=== PATIENT | male | born 1985 | race Caucasian/White ===

== ENCOUNTER 2016-09-10 10:57 | Emergency (ER) | payer SELFPAY ==
--- NOTE | 2016-09-10 15:14 | ED NURSING NOTES ---
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 Chief Complaint: SKIN RASH. 11:09/10/16. 11:09/10/16. Alert. No acute distress. SEPSIS SCREEN: Sepsis Screen. Negative (no infection suspected/documented). --11:08 Ede Osorio R.N. 11:09/10/16. BP: 119/71. HR: 65. RR: 14. O2 saturation: 100% on room air. Temp: 98.2 F (oral). Pain level now: 06/22. --11:08 Ede Osorio R.N. Weight: 81.6 kg stated. Height/Length: 72 inches Per Patient. BMI: 24.4. --11:03 Ede Osorio R.N. Medications None. --11:04 Ede Osorio R.N. Medication/allergy information source: the patient. --11:08 Ede Osorio R.N. Allergies Shrimp. Possible --11:04 Ede Osorio R.N. History Arrived by private vehicle. Historian: patient. Unaccompanied. Primary physician (NONE). 11:02 09/10/16. Reported as (Left and right arm, right hip area). This started today. Onset. (0800). He was recently exposed to food (as possible allergen) - (possibly from shrimp). 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 PAST MEDICAL HX: Immunizations not up to date. SOCIAL HX: Current every day light tobacco smoker (cigarette)- less than 1/2 a pack per day. History of occasional drug use: marijuana. No alcohol use. No infectious disease exposure. ABUSE ASSESSMENT: No report of abuse. FALL RISK ASSESSMENT: Fall risk assessment completed. No fall risk identified. NUTRITIONAL RISK ASSESSMENT: The nutritional risk assessment revealed no deficiencies. FUNCTIONAL ASSESSMENT: Functional assessment: no impairments noted. LEARNING NEEDS ASSESSMENT: The learning needs assessment revealed no barriers. SKIN INTEGRITY ASSESSMENT: Skin integrity risk assessment completed. No skin integrity risk identified. --11:08 Ede Osorio R.N. PROBLEMS: Hives. Tinnitus. Cervical Strain. --11:05 Ede Osorio R.N. ADDITIONAL SURGERIES: Lymph node biopsy. Skin grafting. --11:05 Ede Osorio R.N. Assessment 11:09/10/16. --11:08 Ede Osorio R.N. Interventions 11:09/10/16. 11:09/10/16. ID and allergy band on patient. --11:08 Ede Osorio R.N. PHYSICAL ASSESSMENT 11:09/10/16. Ambulatory to room. GENERAL / NEURO / PSYCH: Alert. Appears anxious. Oriented X 4. RESPIRATORY: Respirations not labored. CVS: Pulses within normal limits. SKIN: Skin is warm and dry. Urticaria in the right axilla and left axilla- associated with itching- Right and left hip. --11:06 Ede Osorio R.N. 11:09/10/16. RESPIRATORY: No wheezes, crackles, rhonchi, cough or decreased breath sounds. --11:08 Ede Osorio R.N. NURSING PROGRESS NOTES 11:09/10/16. The plan of care for this patient has been created. Patient gowned. Head of bed elevated. Reassurance given. Call light placed in reach. Side rails up x 2. Bed placed in lowest position. Brakes of bed on. --11:06 Ede Osorio R.N. 11:09/10/16. Patient ready for evaluation- chart flagged and notification provided. --11:06 Ede Osorio R.N. 11:09/10/16. Pulse oximeter and NIBP monitor placed on patient; monitor alarms on. --11:09 Ede Osorio R.N. 11:09/10/16. --11:10 Ede Osorio R.N. 11:09/10/16. O2 saturation: 96% on room air. --11:10 Ede Osorio R.N. 11:10 09/10/16. Patient informed about reason for wait and about plan of care. --11:10 Ede Osorio R.N. 12:10 09/10/2016 Benadryl (DiphenhydrAMINE HCl) IM 50 mg given. Given in the left ventral gluteus. Allergies verified, confirmed 5 rights and sedative warning given to the patient. --12:10 Ede Osorio R.N. 12:09/10/2016 Pepcid (Famotidine) PO 40 mg given. Allergies verified and confirmed 5 rights. --12:10 Ede Osorio R.N. 12:09/10/2016 Dexamethasone IM 10 mg given. Given in the left ventral gluteus. Allergies verified and confirmed 5 rights. --12:10 Ede Osorio R.N. 12:11 09/10/16. Patient informed about reason for wait and about plan of care. --12:11 Ede Osorio R.N. DISPOSITION / DISCHARGE 12:20 09/10/16. Condition at departure: improved. The goals identified in the patient's plan of care were met. No learning barriers present. Discharge instructions provided and reviewed with the patient. Reviewed warnings. Reviewed medication(s). Treatments reviewed. Reviewed referral to an manager car. Patient verbalized understanding. Written instructions provided in Yemeni. The patient was discharged by the physician. He was discharged home and accompanied by payroll and benefits specialist. He left the Emergency Department ambulatory and via private vehicle. Professional Driver driving. FALL RISK ASSESSMENT: Fall risk assessment completed. No fall risk identified. --12:20 Ede Osorio R.N. 12:19 09/10/16. BP: 113/69. HR: 64. RR: 14. O2 saturation: 99%. Temp: 97.9 F (oral). --12:20 Ede Osorio R.N. 12:20 09/10/16. Departure time: 12:20. --12:20 Ede Osorio R.N. Locked/Released at 09/10/2016 12:29 by Ede Osorio R.N.
--- NOTE | 2016-09-10 15:14 | ED ORDER SUMMARY ---
..... 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 per protocol) (11:09 JBoardley R.N.) Vitals (11:09/10/2016 JBoardley R.N. per protocol) (11:09 JBoardley R.N.) MEDICATION ORDERS: Benadryl IM 50 mg (NOW) (12:09/10/2016 Manuela MATTHEWS) (Ack 12:03 JBoardley R.N.) (12:10 JBoardley R.N.) Pepcid PO 40 mg (NOW) (12:09/10/2016 Manuela MATTHEWS) (Ack 12:03 JBoardley R.N.) (12:10 JBoardley R.N.) Dexamethasone IM 10 mg (NOW) (12:03 09/10/2016 Manuela MATTHEWS) (Ack 12:03 JBoardley R.N.) (12:10 JBoardley R.N.) IV FLUIDS: ORDER SHEET NOTES: [Electronically signed by Ede Osorio R.N. (12:29 09/10/2016)] [Electronically signed by Louie Burton MD (15:37 09/10/2016)] [Electronically locked/signed by Ede Osorio R.N. (12:29 09/10/2016)]
--- NOTE | 2016-09-10 15:14 | ED ORDER SUMMARY ---
..... 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 per protocol) (11:09 JBoardley R.N.) Vitals (11:09/10/2016 JBoardley R.N. per protocol) (11:09 JBoardley R.N.) MEDICATION ORDERS: Benadryl IM 50 mg (NOW) (12:09/10/2016 Manuela MATTHEWS) (Ack 12:03 JBoardley R.N.) (12:10 JBoardley R.N.) Pepcid PO 40 mg (NOW) (12:09/10/2016 Manuela MATTHEWS) (Ack 12:03 JBoardley R.N.) (12:10 JBoardley R.N.) Dexamethasone IM 10 mg (NOW) (12:03 09/10/2016 Manuela MATTHEWS) (Ack 12:03 JBoardley R.N.) (12:10 JBoardley R.N.) IV FLUIDS: ORDER SHEET NOTES: [Electronically signed by Ede Osorio R.N. (12:29 09/10/2016)] [Electronically signed by Louie Burton MD (15:37 09/10/2016)] [Electronically locked/signed by Ede Osorio R.N. (12:29 09/10/2016)]
--- NOTE | 2016-09-10 15:14 | ED NURSING NOTES ---
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 Chief Complaint: SKIN RASH. 11:09/10/16. 11:09/10/16. Alert. No acute distress. SEPSIS SCREEN: Sepsis Screen. Negative (no infection suspected/documented). --11:08 Ede Osorio R.N. 11:09/10/16. BP: 119/71. HR: 65. RR: 14. O2 saturation: 100% on room air. Temp: 98.2 F (oral). Pain level now: 06/22. --11:08 Ede Osorio R.N. Weight: 81.6 kg stated. Height/Length: 72 inches Per Patient. BMI: 24.4. --11:03 Ede Osorio R.N. Medications None. --11:04 Ede Osorio R.N. Medication/allergy information source: the patient. --11:08 Ede Osorio R.N. Allergies Shrimp. Possible --11:04 Ede Osorio R.N. History Arrived by private vehicle. Historian: patient. Unaccompanied. Primary physician (NONE). 11:02 09/10/16. Reported as (Left and right arm, right hip area). This started today. Onset. (0800). He was recently exposed to food (as possible allergen) - (possibly from shrimp). 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 PAST MEDICAL HX: Immunizations not up to date. SOCIAL HX: Current every day light tobacco smoker (cigarette)- less than 1/2 a pack per day. History of occasional drug use: marijuana. No alcohol use. No infectious disease exposure. ABUSE ASSESSMENT: No report of abuse. FALL RISK ASSESSMENT: Fall risk assessment completed. No fall risk identified. NUTRITIONAL RISK ASSESSMENT: The nutritional risk assessment revealed no deficiencies. FUNCTIONAL ASSESSMENT: Functional assessment: no impairments noted. LEARNING NEEDS ASSESSMENT: The learning needs assessment revealed no barriers. SKIN INTEGRITY ASSESSMENT: Skin integrity risk assessment completed. No skin integrity risk identified. --11:08 Ede Osorio R.N. PROBLEMS: Hives. Tinnitus. Cervical Strain. --11:05 Ede Osorio R.N. ADDITIONAL SURGERIES: Lymph node biopsy. Skin grafting. --11:05 Ede Osorio R.N. Assessment 11:09/10/16. --11:08 Ede Osorio R.N. Interventions 11:09/10/16. 11:09/10/16. ID and allergy band on patient. --11:08 Ede Osorio R.N. PHYSICAL ASSESSMENT 11:09/10/16. Ambulatory to room. GENERAL / NEURO / PSYCH: Alert. Appears anxious. Oriented X 4. RESPIRATORY: Respirations not labored. CVS: Pulses within normal limits. SKIN: Skin is warm and dry. Urticaria in the right axilla and left axilla- associated with itching- Right and left hip. --11:06 Ede Osorio R.N. 11:09/10/16. RESPIRATORY: No wheezes, crackles, rhonchi, cough or decreased breath sounds. --11:08 Ede Osorio R.N. NURSING PROGRESS NOTES 11:09/10/16. The plan of care for this patient has been created. Patient gowned. Head of bed elevated. Reassurance given. Call light placed in reach. Side rails up x 2. Bed placed in lowest position. Brakes of bed on. --11:06 Ede Osorio R.N. 11:09/10/16. Patient ready for evaluation- chart flagged and notification provided. --11:06 Ede Osorio R.N. 11:09/10/16. Pulse oximeter and NIBP monitor placed on patient; monitor alarms on. --11:09 Ede Osorio R.N. 11:09/10/16. --11:10 Ede Osorio R.N. 11:09/10/16. O2 saturation: 96% on room air. --11:10 Ede Osorio R.N. 11:10 09/10/16. Patient informed about reason for wait and about plan of care. --11:10 Ede Osorio R.N. 12:10 09/10/2016 Benadryl (DiphenhydrAMINE HCl) IM 50 mg given. Given in the left ventral gluteus. Allergies verified, confirmed 5 rights and sedative warning given to the patient. --12:10 Ede Osorio R.N. 12:09/10/2016 Pepcid (Famotidine) PO 40 mg given. Allergies verified and confirmed 5 rights. --12:10 Ede Osorio R.N. 12:09/10/2016 Dexamethasone IM 10 mg given. Given in the left ventral gluteus. Allergies verified and confirmed 5 rights. --12:10 Ede Osorio R.N. 12:11 09/10/16. Patient informed about reason for wait and about plan of care. --12:11 Ede Osorio R.N. DISPOSITION / DISCHARGE 12:20 09/10/16. Condition at departure: improved. The goals identified in the patient's plan of care were met. No learning barriers present. Discharge instructions provided and reviewed with the patient. Reviewed warnings. Reviewed medication(s). Treatments reviewed. Reviewed referral to an clinical allergist. Patient verbalized understanding. Written instructions provided in [place]anian. The patient was discharged by the physician. He was discharged home and accompanied by tankage grinder operator. He left the Emergency Department ambulatory and via private vehicle. Machine Setter Supervisor driving. FALL RISK ASSESSMENT: Fall risk assessment completed. No fall risk identified. --12:20 Ede Osorio R.N. 12:19 09/10/16. BP: 113/69. HR: 64. RR: 14. O2 saturation: 99%. Temp: 97.9 F (oral). --12:20 Ede Osorio R.N. 12:20 09/10/16. Departure time: 12:20. --12:20 Ede Osorio R.N. Locked/Released at 09/10/2016 12:29 by Ede Osorio R.N.
--- NOTE | 2016-09-10 15:14 | ED CLINICAL REPORT ---
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 Arrived- By private vehicle. Historian- patient. HISTORY OF PRESENT ILLNESS Chief Complaint: ALLERGIC REACTION and "HIVES". The patient has had a itchy, painful skin rash consisting of "redness" and "hives" with generalized distribution. He has had itching and swelling but not had trouble swallowing. No difficulty breathing, dizziness or fainting episodes. This started last night and is still present. It was abrupt in onset and has been constant and waxing/waning. A possible cause has been identified (shrimp). Similar symptoms previously: Once. REVIEW OF SYSTEMS No chills, fever, sweats, calf pain or chest pain. No cough, difficulty breathing, pedal edema, palpitations or abdominal pain. No constipation, diarrhea, nausea, vomiting or urinary problems. All systems otherwise negative, except as recorded above. SOCIAL HISTORY Current every day light tobacco smoker (cigarette)- less than 1/2 a pack per day. History of occasional drug use: marijuana. No alcohol use. FAMILY HISTORY No significant family medical history. ADDITIONAL NOTES The nursing notes have been reviewed. PHYSICAL EXAM Vital Signs: 09/10/2016 11:01 BP: 119/71. HR: 65. RR: 14. O2 saturation: 100%. Temp: 98.2 F. Pain level now: 2/10. Have been reviewed. Appearance: Alert. No acute distress. Head: No facial angioedema. Eyes: Pupils equal, round and reactive to light. ENT: Ears normal. Nose normal. Pharynx normal. Neck: Neck supple. CVS: Normal heart rate and rhythm. Heart sounds normal. Respiratory: No respiratory distress. Breath sounds normal. Abdomen: Nontender. No organomegaly. Extremities: Normal external inspection. No calf tenderness. Skin: Moderate generalized urticaria. PROGRESS AND PROCEDURES Course of Care: Patient is stable. Patient/family counseled. Old medical records reviewed. Disposition: Discharged. Condition: stable. CLINICAL IMPRESSION Acute hives secondary to unknown cause. INSTRUCTIONS No driving or operating machinery while taking medication. Sedative medication was given during your visit. Warnings: Further evaluation is necessary. GENERAL WARNINGS: Return or contact your physician immediately if your condition worsens or changes unexpectedly, if not improving as expected, or if other problems arise. Prescription Medications: Prednisone 20 mg: take 3 orally every day for 5 days. Dispense fifteen (15). No refills. Pepcid 20 mg tablets: Take 1 orally every 12 hours. Dispense thirty (30). No refills. Substitution is permissible. OTC Medications: Benadryl (available over the counter): take according to label instructions. Follow-up: Follow up with an structural iron erector- as recommended by your primary care physician. Understanding of the discharge instructions verbalized by patient. Follow-up with: [facility], , , [address], [facility], [id number] Follow up in five days. Call for an appointment. (Electronically signed by Louie Burton MD 09/10/2016 15:37)
--- NOTE | 2016-09-10 15:14 | ED CLINICAL REPORT ---
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 Arrived- By private vehicle. Historian- patient. HISTORY OF PRESENT ILLNESS Chief Complaint: ALLERGIC REACTION and "HIVES". The patient has had a itchy, painful skin rash consisting of "redness" and "hives" with generalized distribution. He has had itching and swelling but not had trouble swallowing. No difficulty breathing, dizziness or fainting episodes. This started last night and is still present. It was abrupt in onset and has been constant and waxing/waning. A possible cause has been identified (shrimp). Similar symptoms previously: Once. REVIEW OF SYSTEMS No chills, fever, sweats, calf pain or chest pain. No cough, difficulty breathing, pedal edema, palpitations or abdominal pain. No constipation, diarrhea, nausea, vomiting or urinary problems. All systems otherwise negative, except as recorded above. SOCIAL HISTORY Current every day light tobacco smoker (cigarette)- less than 1/2 a pack per day. History of occasional drug use: marijuana. No alcohol use. FAMILY HISTORY No significant family medical history. ADDITIONAL NOTES The nursing notes have been reviewed. PHYSICAL EXAM Vital Signs: 09/10/2016 11:01 BP: 119/71. HR: 65. RR: 14. O2 saturation: 100%. Temp: 98.2 F. Pain level now: 2/10. Have been reviewed. Appearance: Alert. No acute distress. Head: No facial angioedema. Eyes: Pupils equal, round and reactive to light. ENT: Ears normal. Nose normal. Pharynx normal. Neck: Neck supple. CVS: Normal heart rate and rhythm. Heart sounds normal. Respiratory: No respiratory distress. Breath sounds normal. Abdomen: Nontender. No organomegaly. Extremities: Normal external inspection. No calf tenderness. Skin: Moderate generalized urticaria. PROGRESS AND PROCEDURES Course of Care: Patient is stable. Patient/family counseled. Old medical records reviewed. Disposition: Discharged. Condition: stable. CLINICAL IMPRESSION Acute hives secondary to unknown cause. INSTRUCTIONS No driving or operating machinery while taking medication. Sedative medication was given during your visit. Warnings: Further evaluation is necessary. GENERAL WARNINGS: Return or contact your physician immediately if your condition worsens or changes unexpectedly, if not improving as expected, or if other problems arise. Prescription Medications: Prednisone 20 mg: take 3 orally every day for 5 days. Dispense fifteen (15). No refills. Pepcid 20 mg tablets: Take 1 orally every 12 hours. Dispense thirty (30). No refills. Substitution is permissible. OTC Medications: Benadryl (available over the counter): take according to label instructions. Follow-up: Follow up with an cyber security- as recommended by your primary care physician. Understanding of the discharge instructions verbalized by patient. Follow-up with: [facility], , , [address], [facility], [id number] Follow up in five days. Call for an appointment. (Electronically signed by Louie Burton MD 09/10/2016 15:37)
--- NOTE | 2016-09-10 15:38 | ED MAR SUMMARY ---
..... 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 Medication Administered: BENADRYL [IM] (DIPHENHYDRAMINE HCL), Dose: 50 mg IM. Medication Ordered: Benadryl IM 50 mg (NOW). Given 12:09/10/2016 Ede Osorio R.N. Medication Administered: PEPCID [PO] (FAMOTIDINE), Dose: 40 mg PO. Medication Ordered: Pepcid PO 40 mg (NOW). Given 12:09/10/2016 Ede Osorio R.N. Medication Administered: DEXAMETHASONE [IM], Dose: 10 mg IM. Medication Ordered: Dexamethasone IM 10 mg (NOW).
--- NOTE | 2016-09-10 15:38 | ED DISCHARGE INSTRUCTIONS ---
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 [address] 31y, M Registration Date/Time: 09/10/2016 Acute hives secondary to unknown cause. INSTRUCTIONS No driving or operating machinery while taking medication. Sedative medication was given during your visit. Warnings: Further evaluation is necessary. GENERAL WARNINGS: Return or contact your physician immediately if your condition worsens or changes unexpectedly, if not improving as expected, or if other problems arise. Prescription Medications: Prednisone 20 mg: take 3 orally every day for 5 days. Dispense fifteen (15). No refills. Pepcid 20 mg tablets: Take 1 orally every 12 hours. Dispense thirty (30). No refills. Substitution is permissible. OTC Medications: Benadryl (available over the counter): take according to label instructions. Follow-up: Follow up with an gleason operator- as recommended by your primary care physician. Understanding of the discharge instructions verbalized by patient. Follow-up with: [facility], , , [address], , [place], [address] Follow up in five days. Call for an appointment. ADDITIONAL INFORMATION Hives Hives is an itchy red rash that can appear suddenly and move about your body. It goes away in one place and comes back in another. This is usually caused by something that you are allergic to such as: EATING: fruit, shellfish, chocolate, nuts, tomatoes or medicine BREATHING: pollens, animal hair/fur or mold spores Exposure to cold air, sun rays or exercise can sometimes cause an attack. Many times we cannot find a cause. Medicines can be used to reduce itching and swelling. The rash will usually fade over several days, but can sometimes last up to two weeks. Home Care: 1) Do not wear tight clothing and do not take hot baths/showers since heat can make the itching worse. 2) An ice pack (ice cubes in a plastic bag, wrapped in a towel) will reduce local areas of redness and itching. Lanacaine cream or Solarcaine spray (or other product containing "benzocaine") will reduce itching. 3) Oral Benadryl (diphenhydramine) is an antihistamine available at drug and grocery stores. Unless a prescription antihistamine was given, Benadryl may be used to reduce itching if large areas of the skin are involved. Use lower doses during the daytime and higher doses at bedtime since the drug may make you sleepy. [NOTE: Do not use Benadryl if you have glaucoma or if you are a man with trouble urinating due to an enlarged prostate.] Claritin (loratadine) is an antihistamine that causes less drowsiness and is a good alternative for daytime use. 4) If you know what you are sensitive to, avoid this substance. Future reactions could be worse than this one. Follow Up with your doctor as directed by our staff, if symptoms do not begin to improve in two days. If you have had a severe reaction, or have had several episodes of hives, then ask your doctor about allergy testing to find out what you are allergic to. Get Prompt Medical Attention if any of the following occur: -- Trouble breathing or swallowing -- New or increased swelling in the face, lips, tongue or throat -- Dizziness, weakness or fainting Food Allergy Some persons are sensitive to certain foods. Avoiding these foods is the best treatment. Symptoms of food allergy may begin within minutes up to two hours after eating. Symptoms cause nausea, vomiting, diarrhea or stomach cramps, itchy rash (hives), swelling of the eyes, lips, face or tongue, wheezing, difficulty breathing or swallowing, throat tightness, dizziness or fainting. This kind of allergy can be life-threatening, but in mild-moderate cases symptoms resolve within 6 to 24 hours. Persons with certain health conditions, such as asthma and eczema, are prone to food allergies. Foods that commonly cause an allergic reaction include milk, eggs, peanuts, tree nuts, fish or shellfish, and wheat. But be aware that any food can cause a reaction. Treatment for a severe allergic reaction (anaphylaxis) is epinephrine. A person with a severe food allergy should carry this medication for self-injection. This is available by prescription. Brands include EpiPen, Adrenaclick, and Twinject. Home Care: If symptoms were moderate to severe, rest at home for the next 24 hours. Avoid tobacco and alcohol consumption. These may worsensymptoms. If you know what foods caused your reaction today, avoid them in the future. The next reaction is likely to be worse. Let your family members, friends and personal physician know about your food allergy. Learn how to read food labels so you can check for the substance that you reacted to. If the product does not have a label, it is best to avoid it. When in restaurants, ask about ingredients. If your reaction was severe, obtain a medical alert bracelet or necklace noting your allergy. If epinephrine is prescribed, carry it at all times. Learn how to use the device. If you begin to feel the symptoms of another reaction, use the epinephrine to inject yourself right away, and call 911. Dont wait until symptoms become severe. Oral Benadryl (diphenhydramine) is an antihistamine available at drug and grocery stores. Unless a prescription antihistamine was given, Benadryl may be used to reduce itching if large areas of the skin are involved. Use lower doses during the daytime and higher doses at bedtime since the drug may make you sleepy. [NOTE: Do not use Benadryl if you have glaucoma or if you are a man with trouble urinating due to an enlarged prostate.] Follow Up with your doctor or as advised if you are not improving over the next 2 to 3 days. If you do not know what caused this reaction, skin tests and blood tests, or an elimination diet may be helpful. You may locate an acute care clinical nurse specialist in your area by contacting: [employer] [email or web address] [employer] [email or web address] Get Prompt Medical Attention if any of the following occur: Worsening of your symptoms New or worse swelling in the face, eyelids, lips, mouth, throat or tongue Trouble swallowing or breathing Dizziness, weakness or fainting Fever of 100.4F (38C) or higher, or as directed by your healthcare provider Severe constant lower right abdominal pain Persistent vomiting (unable to keep liquids down) or constant diarrhea Blood or mucus in the stool Prednisone Oral tablet What is this medicine? PREDNISONE (PRED ni sone) is a corticosteroid. It is commonly used to treat inflammation of the skin, joints, lungs, and other organs. Common conditions treated include asthma, allergies, and arthritis. It is also used for other conditions, such as blood disorders and diseases of the adrenal glands. How should I use this medicine? Take this medicine by mouth with a glass of water. Follow the directions on the prescription label. Take this medicine with food. If you are taking this medicine once a day, take it in the morning. Do not take more medicine than you are told to take. Do not suddenly stop taking your medicine because you may develop a severe reaction. Your doctor will tell you how much medicine to take. If your doctor wants you to stop the medicine, the dose may be slowly lowered over time to avoid any side effects. Talk to your stay cutter regarding the use of this medicine in children. Special care may be needed. What side effects may I notice from receiving this medicine? Side effects that you should report to your doctor or health medicare biller as soon as possible: allergic reactions like skin rash, itching or hives, swelling of the face, lips, or tongue changes in emotions or moods changes in vision depressed mood eye pain fever or chills, cough, sore throat, pain or difficulty passing urine increased thirst swelling of ankles, feet Side effects that usually do not require medical attention (report to your doctor or health medicare biller if they continue or are bothersome): confusion, excitement, restlessness headache nausea, vomiting skin problems, acne, thin and shiny skin trouble sleeping weight gain What may interact with this medicine? Do not take this medicine with any of the following medications: metyrapone mifepristone This medicine may also interact with the following medications: aminoglutethimide amphotericin B aspirin and aspirin-like medicines barbiturates certain medicines for diabetes, like glipizide or glyburide cholestyramine cholinesterase inhibitors cyclosporine digoxin diuretics ephedrine female hormones, like estrogens and control pills isoniazid ketoconazole NSAIDS, medicines for pain and inflammation, like ibuprofen or naproxen phenytoin rifampin toxoids vaccines warfarin What if I miss a dose? If you miss a dose, take it as soon as you can. If it is almost time for your next dose, talk to your doctor or health medicare biller. You may need to miss a dose or take an extra dose. Do not take double or extra doses without advice. Where should I keep my medicine? Keep out of the reach of children. Store at room temperature between 15 and 30 degrees C (59 and 86 degrees F). Protect from light. Keep container tightly closed. Throw away any unused medicine after the expiration date. What should I tell my health care provider before I take this medicine? They need to know if you have any of these conditions: Mont[place]ier's syndrome diabetes glaucoma heart disease high blood pressure infection (especially a virus infection such as chickenpox, cold sores, or herpes) kidney disease liver disease mental illness myasthenia gravis osteoporosis seizures stomach or intestine problems thyroid disease an unusual or allergic reaction to lactose, prednisone, other medicines, foods, dyes, or preservatives or trying to get breast-feeding What should I watch for while using this medicine? Visit your doctor or health medicare biller for regular checks on your progress. If you are taking this medicine over a prolonged period, carry an identification card with your name and address, the type and dose of your medicine, and your doctor's name and address. This medicine may increase your risk of getting an infection. Tell your doctor or health medicare biller if you are around anyone with measles or chickenpox, or if you develop sores or blisters that do not heal properly. If you are going to have surgery, tell your doctor or health medicare biller that you have taken this medicine within the last twelve months. Ask your doctor or health medicare biller about your diet. You may need to lower the amount of salt you eat. This medicine may affect blood sugar levels. If you have diabetes, check with your doctor or health medicare biller before you change your diet or the dose of your diabetic medicine. Famotidine Oral tablet What is this medicine? FAMOTIDINE (fa SHARON chatman) is a type of antihistamine that blocks the release of stomach acid. It is used to treat stomach or intestinal ulcers. It can also relieve heartburn from acid reflux. How should I use this medicine? Take this medicine by mouth with a glass of water. Follow the directions on the prescription label. If you only take this medicine once a day, take it at bedtime. Take your doses at regular intervals. Do not take your medicine more often than directed. Talk to your stay cutter regarding the use of this medicine in children. Special care may be needed. What side effects may I notice from receiving this medicine? Side effects that you should report to your doctor or health medicare biller as soon as possible: agitation, nervousness confusion hallucinations skin rash, itching Side effects that usually do not require medical attention (report to your doctor or health medicare biller if they continue or are bothersome): constipation diarrhea dizziness headache What may interact with this medicine? delavirdine itraconazole ketoconazole What if I miss a dose? If you miss a dose, take it as soon as you can. If it is almost time for your next dose, take only that dose. Do not take double or extra doses. Where should I keep my medicine? Keep out of the reach of children. Store at room temperature between 15 and 30 degrees C (59 and 86 degrees F). Do not freeze. Throw away any unused medicine after the expiration date. What should I tell my health care provider before I take this medicine? They need to know if you have any of these conditions: kidney or liver disease trouble swallowing an unusual or allergic reaction to famotidine, other medicines, foods, dyes, or preservatives or trying to get breast-feeding What should I watch for while using this medicine? Tell your doctor or health medicare biller if your condition does not start to get better or if it gets worse. Finish the full course of tablets prescribed, even if you feel better. Do not take with aspirin, ibuprofen or other antiinflammatory medicines. These can make your condition worse. Do not smoke cigarettes or drink alcohol. These cause irritation in your stomach and can increase the time it will take for ulcers to heal. If you get black, tarry stools or vomit up what looks like coffee grounds, call your doctor or health medicare biller at once. You may have a bleeding ulcer. Diphenhydramine Tannate Chewable tablet What is this medicine? DIPHENHYDRAMINE (dye avi barnes) is an antihistamine. It is used to treat the symptoms of an allergic reaction. How should I use this medicine? Take this medicine by mouth. Chew it completely before swallowing. Follow the directions on the prescription label. Take your doses at regular intervals. Do not take your medicine more often than directed. Talk to your stay cutter regarding the use of this medicine in children. While this drug may be prescribed for children as young as 6 years old for selected conditions, precautions do apply. Patients over 65 years old may have a stronger reaction and need a smaller dose. What side effects may I notice from receiving this medicine? Side effects that you should report to your doctor or health medicare biller as soon as possible: allergic reactions like skin rash, itching or hives, swelling of the face, lips, or tongue changes in vision confused, agitated, nervous irregular or fast heartbeat tremor trouble passing urine unusual bleeding or bruising unusually weak or tired Side effects that usually do not require medical attention (report to your doctor or health medicare biller if they continue or are bothersome): constipation, diarrhea drowsy headache loss of appetite stomach upset, vomiting thick mucous What may interact with this medicine? Do not take this medicine with any of the following medications: MAOIs like Carbex, Eldepryl, Marplan, Nardil, and Parnate This medicine may also interact with the following medications: alcohol barbiturates, like phenobarbital medicines for bladder spasm like oxybutynin, tolterodine medicines for blood pressure medicines for depression, anxiety, or psychotic disturbances medicines for movement abnormalities or Parkinson's disease medicines for sleep other medicines for cold, cough or allergy some medicines for the stomach like chlordiazepoxide, dicyclomine What if I miss a dose? If you miss a dose, take it as soon as you can. If it is almost time for your next dose, take only that dose. Do not take double or extra doses. Where should I keep my medicine? Keep out of the reach of children. Store at room temperature between 15 and 30 degrees C (59 and 86 degrees F). Keep container closed tightly. Throw away any unused medicine after the expiration date. What should I tell my health care provider before I take this medicine? They need to know if you have any of these conditions: glaucoma high blood pressure heart disease liver disease lung or breathing disease, like asthma pain or difficulty passing urine phenylketonuria prostate trouble ulcers or other stomach problems an unusual or allergic reaction to diphenhydramine, sulfites, other medicines foods, dyes, or preservatives or trying to get breast-feeding What should I watch for while using this medicine? Visit your doctor or health medicare biller for regular check ups. Tell your doctor or healthcare professional if your symptoms do not start to get better or if they get worse. Your mouth may get dry. Chewing sugarless gum or sucking hard candy, and drinking plenty of water may help. Contact your doctor if the problem does not go away or is severe. This medicine may cause dry eyes and blurred vision. If you wear contact lenses you may feel some discomfort. Lubricating drops may help. See your eye doctor if the problem does not go away or is severe. You may get drowsy or dizzy. Do not drive, use machinery, or do anything that needs mental alertness until you know how this medicine affects you. Do not stand or sit up quickly, especially if you are an older patient. This reduces the risk of dizzy or fainting spells. Alcohol may interfere with the effect of this medicine. Avoid alcoholic drinks. You have been given the following additional information: Hives Food Allergy Prednisone Oral tablet Famotidine Oral tablet Diphenhydramine Tannate Chewable tablet No driving or operating machinery while taking medication. Sedative medication was given during your visit. (Electronically signed by Louie Burton MD 09/10/2016 15:37)
--- NOTE | 2016-09-10 15:38 | ED MED RECONCILIATION SUMMARY ---
Patient: GERMAINE KASPER Medication Reconciliation Report [facility] VisitID: [id number] [address] [place] [address] 31y, M Registration Date/Time: 09/10/2016 Weight: 81.6 kg Height/Length: 72 in. BMI: 24.4 ALLERGIES: Shrimp The patient's Home Medications are listed below: NONE. The source(s) of the original Home Medication information: patient The following Medications were given to the patient in the Emergency Department: Benadryl [IM] IM 50 mg, administered: 09/10/2016 12:10:00 PM Pepcid [PO] PO 40 mg, administered: 09/10/2016 12:10:00 PM Dexamethasone [IM] IM 10 mg, administered: 09/10/2016 12:10:00 PM The following Medications were prescribed to the patient: Benadryl (available over the counter): take according to label instructions. -- Louie Burton MD Prednisone 20 mg: take 3 orally every day for 5 days. Dispense fifteen (15). No refills. -- Louie Burton MD Pepcid 20 mg tablets: Take 1 orally every 12 hours. Dispense thirty (30). No refills. Substitution is permissible. -- Louie Burton MD
--- NOTE | 2016-09-10 15:38 | ED DISCHARGE INSTRUCTIONS ---
Patient: GERMAINE KASPER General Instructions [facility] VisitID: [id number] [address] [place] [address] 31y, M Registration Date/Time: 09/10/2016 Acute hives secondary to unknown cause. INSTRUCTIONS No driving or operating machinery while taking medication. Sedative medication was given during your visit. Warnings: Further evaluation is necessary. GENERAL WARNINGS: Return or contact your physician immediately if your condition worsens or changes unexpectedly, if not improving as expected, or if other problems arise. Prescription Medications: Prednisone 20 mg: take 3 orally every day for 5 days. Dispense fifteen (15). No refills. Pepcid 20 mg tablets: Take 1 orally every 12 hours. Dispense thirty (30). No refills. Substitution is permissible. OTC Medications: Benadryl (available over the counter): take according to label instructions. Follow-up: Follow up with an medical affairs manager- as recommended by your primary care physician. Understanding of the discharge instructions verbalized by patient. Follow-up with: [facility], , , [address], , [place], [address] Follow up in five days. Call for an appointment. ADDITIONAL INFORMATION Hives Hives is an itchy red rash that can appear suddenly and move about your body. It goes away in one place and comes back in another. This is usually caused by something that you are allergic to such as: EATING: fruit, shellfish, chocolate, nuts, tomatoes or medicine BREATHING: pollens, animal hair/fur or mold spores Exposure to cold air, sun rays or exercise can sometimes cause an attack. Many times we cannot find a cause. Medicines can be used to reduce itching and swelling. The rash will usually fade over several days, but can sometimes last up to two weeks. Home Care: 1) Do not wear tight clothing and do not take hot baths/showers since heat can make the itching worse. 2) An ice pack (ice cubes in a plastic bag, wrapped in a towel) will reduce local areas of redness and itching. Lanacaine cream or Solarcaine spray (or other product containing "benzocaine") will reduce itching. 3) Oral Benadryl (diphenhydramine) is an antihistamine available at drug and grocery stores. Unless a prescription antihistamine was given, Benadryl may be used to reduce itching if large areas of the skin are involved. Use lower doses during the daytime and higher doses at bedtime since the drug may make you sleepy. [NOTE: Do not use Benadryl if you have glaucoma or if you are a man with trouble urinating due to an enlarged prostate.] Claritin (loratadine) is an antihistamine that causes less drowsiness and is a good alternative for daytime use. 4) If you know what you are sensitive to, avoid this substance. Future reactions could be worse than this one. Follow Up with your doctor as directed by our staff, if symptoms do not begin to improve in two days. If you have had a severe reaction, or have had several episodes of hives, then ask your doctor about allergy testing to find out what you are allergic to. Get Prompt Medical Attention if any of the following occur: -- Trouble breathing or swallowing -- New or increased swelling in the face, lips, tongue or throat -- Dizziness, weakness or fainting Food Allergy Some persons are sensitive to certain foods. Avoiding these foods is the best treatment. Symptoms of food allergy may begin within minutes up to two hours after eating. Symptoms cause nausea, vomiting, diarrhea or stomach cramps, itchy rash (hives), swelling of the eyes, lips, face or tongue, wheezing, difficulty breathing or swallowing, throat tightness, dizziness or fainting. This kind of allergy can be life-threatening, but in mild-moderate cases symptoms resolve within 6 to 24 hours. Persons with certain health conditions, such as asthma and eczema, are prone to food allergies. Foods that commonly cause an allergic reaction include milk, eggs, peanuts, tree nuts, fish or shellfish, and wheat. But be aware that any food can cause a reaction. Treatment for a severe allergic reaction (anaphylaxis) is epinephrine. A person with a severe food allergy should carry this medication for self-injection. This is available by prescription. Brands include EpiPen, Adrenaclick, and Twinject. Home Care: If symptoms were moderate to severe, rest at home for the next 24 hours. Avoid tobacco and alcohol consumption. These may worsensymptoms. If you know what foods caused your reaction today, avoid them in the future. The next reaction is likely to be worse. Let your family members, friends and personal physician know about your food allergy. Learn how to read food labels so you can check for the substance that you reacted to. If the product does not have a label, it is best to avoid it. When in restaurants, ask about ingredients. If your reaction was severe, obtain a medical alert bracelet or necklace noting your allergy. If epinephrine is prescribed, carry it at all times. Learn how to use the device. If you begin to feel the symptoms of another reaction, use the epinephrine to inject yourself right away, and call 911. Dont wait until symptoms become severe. Oral Benadryl (diphenhydramine) is an antihistamine available at drug and grocery stores. Unless a prescription antihistamine was given, Benadryl may be used to reduce itching if large areas of the skin are involved. Use lower doses during the daytime and higher doses at bedtime since the drug may make you sleepy. [NOTE: Do not use Benadryl if you have glaucoma or if you are a man with trouble urinating due to an enlarged prostate.] Follow Up with your doctor or as advised if you are not improving over the next 2 to 3 days. If you do not know what caused this reaction, skin tests and blood tests, or an elimination diet may be helpful. You may locate an occupational therapy specialist in your area by contacting: [employer] www.aaaai.org [employer] www.acaai.org Get Prompt Medical Attention if any of the following occur: Worsening of your symptoms New or worse swelling in the face, eyelids, lips, mouth, throat or tongue Trouble swallowing or breathing Dizziness, weakness or fainting Fever of 100.4F (38C) or higher, or as directed by your healthcare provider Severe constant lower right abdominal pain Persistent vomiting (unable to keep liquids down) or constant diarrhea Blood or mucus in the stool Prednisone Oral tablet What is this medicine? PREDNISONE (PRED ni sone) is a corticosteroid. It is commonly used to treat inflammation of the skin, joints, lungs, and other organs. Common conditions treated include asthma, allergies, and arthritis. It is also used for other conditions, such as blood disorders and diseases of the adrenal glands. How should I use this medicine? Take this medicine by mouth with a glass of water. Follow the directions on the prescription label. Take this medicine with food. If you are taking this medicine once a day, take it in the morning. Do not take more medicine than you are told to take. Do not suddenly stop taking your medicine because you may develop a severe reaction. Your doctor will tell you how much medicine to take. If your doctor wants you to stop the medicine, the dose may be slowly lowered over time to avoid any side effects. Talk to your editor house organ regarding the use of this medicine in children. Special care may be needed. What side effects may I notice from receiving this medicine? Side effects that you should report to your doctor or health child care lead teacher as soon as possible: allergic reactions like skin rash, itching or hives, swelling of the face, lips, or tongue changes in emotions or moods changes in vision depressed mood eye pain fever or chills, cough, sore throat, pain or difficulty passing urine increased thirst swelling of ankles, feet Side effects that usually do not require medical attention (report to your doctor or health child care lead teacher if they continue or are bothersome): confusion, excitement, restlessness headache nausea, vomiting skin problems, acne, thin and shiny skin trouble sleeping weight gain What may interact with this medicine? Do not take this medicine with any of the following medications: metyrapone mifepristone This medicine may also interact with the following medications: aminoglutethimide amphotericin B aspirin and aspirin-like medicines barbiturates certain medicines for diabetes, like glipizide or glyburide cholestyramine cholinesterase inhibitors cyclosporine digoxin diuretics ephedrine female hormones, like estrogens and control pills isoniazid ketoconazole NSAIDS, medicines for pain and inflammation, like ibuprofen or naproxen phenytoin rifampin toxoids vaccines warfarin What if I miss a dose? If you miss a dose, take it as soon as you can. If it is almost time for your next dose, talk to your doctor or health child care lead teacher. You may need to miss a dose or take an extra dose. Do not take double or extra doses without advice. Where should I keep my medicine? Keep out of the reach of children. Store at room temperature between 15 and 30 degrees C (59 and 86 degrees F). Protect from light. Keep container tightly closed. Throw away any unused medicine after the expiration date. What should I tell my health care provider before I take this medicine? They need to know if you have any of these conditions: [place]'s syndrome diabetes glaucoma heart disease high blood pressure infection (especially a virus infection such as chickenpox, cold sores, or herpes) kidney disease liver disease mental illness myasthenia gravis osteoporosis seizures stomach or intestine problems thyroid disease an unusual or allergic reaction to lactose, prednisone, other medicines, foods, dyes, or preservatives or trying to get breast-feeding What should I watch for while using this medicine? Visit your doctor or health child care lead teacher for regular checks on your progress. If you are taking this medicine over a prolonged period, carry an identification card with your name and address, the type and dose of your medicine, and your doctor's name and address. This medicine may increase your risk of getting an infection. Tell your doctor or health child care lead teacher if you are around anyone with measles or chickenpox, or if you develop sores or blisters that do not heal properly. If you are going to have surgery, tell your doctor or health child care lead teacher that you have taken this medicine within the last twelve months. Ask your doctor or health child care lead teacher about your diet. You may need to lower the amount of salt you eat. This medicine may affect blood sugar levels. If you have diabetes, check with your doctor or health child care lead teacher before you change your diet or the dose of your diabetic medicine. Famotidine Oral tablet What is this medicine? FAMOTIDINE (fa SHARON chatman) is a type of antihistamine that blocks the release of stomach acid. It is used to treat stomach or intestinal ulcers. It can also relieve heartburn from acid reflux. How should I use this medicine? Take this medicine by mouth with a glass of water. Follow the directions on the prescription label. If you only take this medicine once a day, take it at bedtime. Take your doses at regular intervals. Do not take your medicine more often than directed. Talk to your editor house organ regarding the use of this medicine in children. Special care may be needed. What side effects may I notice from receiving this medicine? Side effects that you should report to your doctor or health child care lead teacher as soon as possible: agitation, nervousness confusion hallucinations skin rash, itching Side effects that usually do not require medical attention (report to your doctor or health child care lead teacher if they continue or are bothersome): constipation diarrhea dizziness headache What may interact with this medicine? delavirdine itraconazole ketoconazole What if I miss a dose? If you miss a dose, take it as soon as you can. If it is almost time for your next dose, take only that dose. Do not take double or extra doses. Where should I keep my medicine? Keep out of the reach of children. Store at room temperature between 15 and 30 degrees C (59 and 86 degrees F). Do not freeze. Throw away any unused medicine after the expiration date. What should I tell my health care provider before I take this medicine? They need to know if you have any of these conditions: kidney or liver disease trouble swallowing an unusual or allergic reaction to famotidine, other medicines, foods, dyes, or preservatives or trying to get breast-feeding What should I watch for while using this medicine? Tell your doctor or health child care lead teacher if your condition does not start to get better or if it gets worse. Finish the full course of tablets prescribed, even if you feel better. Do not take with aspirin, ibuprofen or other antiinflammatory medicines. These can make your condition worse. Do not smoke cigarettes or drink alcohol. These cause irritation in your stomach and can increase the time it will take for ulcers to heal. If you get black, tarry stools or vomit up what looks like coffee grounds, call your doctor or health child care lead teacher at once. You may have a bleeding ulcer. Diphenhydramine Tannate Chewable tablet What is this medicine? DIPHENHYDRAMINE (dye avi barnes) is an antihistamine. It is used to treat the symptoms of an allergic reaction. How should I use this medicine? Take this medicine by mouth. Chew it completely before swallowing. Follow the directions on the prescription label. Take your doses at regular intervals. Do not take your medicine more often than directed. Talk to your editor house organ regarding the use of this medicine in children. While this drug may be prescribed for children as young as 6 years old for selected conditions, precautions do apply. Patients over 65 years old may have a stronger reaction and need a smaller dose. What side effects may I notice from receiving this medicine? Side effects that you should report to your doctor or health child care lead teacher as soon as possible: allergic reactions like skin rash, itching or hives, swelling of the face, lips, or tongue changes in vision confused, agitated, nervous irregular or fast heartbeat tremor trouble passing urine unusual bleeding or bruising unusually weak or tired Side effects that usually do not require medical attention (report to your doctor or health child care lead teacher if they continue or are bothersome): constipation, diarrhea drowsy headache loss of appetite stomach upset, vomiting thick mucous What may interact with this medicine? Do not take this medicine with any of the following medications: MAOIs like Carbex, Eldepryl, Marplan, Nardil, and Parnate This medicine may also interact with the following medications: alcohol barbiturates, like phenobarbital medicines for bladder spasm like oxybutynin, tolterodine medicines for blood pressure medicines for depression, anxiety, or psychotic disturbances medicines for movement abnormalities or Parkinson's disease medicines for sleep other medicines for cold, cough or allergy some medicines for the stomach like chlordiazepoxide, dicyclomine What if I miss a dose? If you miss a dose, take it as soon as you can. If it is almost time for your next dose, take only that dose. Do not take double or extra doses. Where should I keep my medicine? Keep out of the reach of children. Store at room temperature between 15 and 30 degrees C (59 and 86 degrees F). Keep container closed tightly. Throw away any unused medicine after the expiration date. What should I tell my health care provider before I take this medicine? They need to know if you have any of these conditions: glaucoma high blood pressure heart disease liver disease lung or breathing disease, like asthma pain or difficulty passing urine phenylketonuria prostate trouble ulcers or other stomach problems an unusual or allergic reaction to diphenhydramine, sulfites, other medicines foods, dyes, or preservatives or trying to get breast-feeding What should I watch for while using this medicine? Visit your doctor or health child care lead teacher for regular check ups. Tell your doctor or healthcare professional if your symptoms do not start to get better or if they get worse. Your mouth may get dry. Chewing sugarless gum or sucking hard candy, and drinking plenty of water may help. Contact your doctor if the problem does not go away or is severe. This medicine may cause dry eyes and blurred vision. If you wear contact lenses you may feel some discomfort. Lubricating drops may help. See your eye doctor if the problem does not go away or is severe. You may get drowsy or dizzy. Do not drive, use machinery, or do anything that needs mental alertness until you know how this medicine affects you. Do not stand or sit up quickly, especially if you are an older patient. This reduces the risk of dizzy or fainting spells. Alcohol may interfere with the effect of this medicine. Avoid alcoholic drinks. You have been given the following additional information: Hives Food Allergy Prednisone Oral tablet Famotidine Oral tablet Diphenhydramine Tannate Chewable tablet No driving or operating machinery while taking medication. Sedative medication was given during your visit. (Electronically signed by Louie Burton MD 09/10/2016 15:37)
--- NOTE | 2016-09-10 15:38 | ED MED RECONCILIATION SUMMARY ---
Patient: GERMAINE KASPER Medication Reconciliation Report [facility] VisitID: [id number] [address] [place] [address] 31y, M Registration Date/Time: 09/10/2016 Weight: 81.6 kg Height/Length: 72 in. BMI: 24.4 ALLERGIES: Shrimp The patient's Home Medications are listed below: NONE. The source(s) of the original Home Medication information: patient The following Medications were given to the patient in the Emergency Department: Benadryl [IM] IM 50 mg, administered: 09/10/2016 12:10:00 PM Pepcid [PO] PO 40 mg, administered: 09/10/2016 12:10:00 PM Dexamethasone [IM] IM 10 mg, administered: 09/10/2016 12:10:00 PM The following Medications were prescribed to the patient: Benadryl (available over the counter): take according to label instructions. -- Louie Burton MD Prednisone 20 mg: take 3 orally every day for 5 days. Dispense fifteen (15). No refills. -- Louie Burton MD Pepcid 20 mg tablets: Take 1 orally every 12 hours. Dispense thirty (30). No refills. Substitution is permissible. -- Louie Burton MD
--- NOTE | 2016-09-10 15:38 | ED MAR SUMMARY ---
..... Medication Administration Record [facility] [address] [place] [address] Patient: GERMAINE KASPER Visit ID: [id number] 31y, M Weight: 81.6 kg Height/Length: 72 in BMI: 24.4 ALLERGIES: Shrimp Given 12:09/10/2016 Ede Osoiro R.N. Medication Administered: BENADRYL [IM] (DIPHENHYDRAMINE HCL), Dose: 50 mg IM. Medication Ordered: Benadryl IM 50 mg (NOW). Given 12:09/10/2016 Ede Osorio R.N. Medication Administered: PEPCID [PO] (FAMOTIDINE), Dose: 40 mg PO. Medication Ordered: Pepcid PO 40 mg (NOW). Given 12:09/10/2016 Ede Osorio R.N. Medication Administered: DEXAMETHASONE [IM], Dose: 10 mg IM. Medication Ordered: Dexamethasone IM 10 mg (NOW).
== END 2016-09-10 12:20 | disposition home or self-care (01) ==
LOC: ED SRH 10:57
DX: L50.0 Allergic urticaria (principal); Z72.0 Tobacco use

== ENCOUNTER 2016-09-10 15:25 | Emergency (ER) | payer SELFPAY ==
--- NOTE | 2016-09-10 17:10 | ED CLINICAL REPORT ---
Clinical Report - Physicians/Mid Levels [facility] [address] [place] [address] 09/10/2016 15:26 Patient: GERMAINE KASPER Time Seen: 15:36. Arrived- By private vehicle. Historian- patient. HISTORY OF PRESENT ILLNESS Chief Complaint: ALLERGIC REACTION and "HIVES". The patient has had a skin rash, itching and swelling but not had trouble swallowing. No difficulty breathing. This started last night. It was abrupt in onset and has been constant and waxing/waning. A possible cause has been identified (shrimp). He was recently exposed to shellfish (as possible allergen) (he says that he went home and went to sleep as he was feeling a bit better. When he woke up he said that his hives were much worse.. He did not yet fill his prescription for the prednisone. He denies any swelling in his throat or trouble breathing he does feel that his lips are affected at this time). Similar symptoms previously: Recent medical care: The patient was seen recently at this facility. Seen for similar symptoms. Evaluation/treatment: antihistamines and steroids. Diagnosis: allergic reaction and urticaria. ( he did not fill and start his prescription for prednisone as instructed.). REVIEW OF SYSTEMS No chills, fever, sweats, calf pain or chest pain. No cough, difficulty breathing, pedal edema, palpitations or abdominal pain. No constipation, diarrhea, nausea, vomiting or urinary problems. All systems otherwise negative, except as recorded above. SOCIAL HISTORY Current every day light tobacco smoker (cigarette)- less than 1/2 a pack per day. Occasional alcohol use. History of occasional drug use: marijuana. FAMILY HISTORY Denies family medical history. ADDITIONAL NOTES The nursing notes have been reviewed. PHYSICAL EXAM Vital Signs: 09/10/2016 15:28 BP: 101/72. HR: 98. RR: 18. O2 saturation: 100%. Temp: 97.5 F. Pain level now: 10/10. Have been reviewed. Appearance: Alert. No acute distress. ENT: Ears normal. Nose normal. Pharynx normal. Neck: Neck supple. CVS: Normal heart rate and rhythm. Heart sounds normal. Respiratory: No respiratory distress. Breath sounds normal. Abdomen: Nontender. No organomegaly. Extremities: Normal external inspection. No calf tenderness. Skin: The rash is urticarial. The rash is generalized. PROGRESS AND PROCEDURES Course of Care: Patient is stable. Symptoms better. Vital signs have been reviewed. Physical exam findings are improved. Alert. No acute distress. Breath sounds normal. No respiratory distress. Normal heart rate and rhythm. Heart sounds normal. Abdomen soft and nontender. ( his diffuse hives were markedly decreased and less intense after treatment with epinephrine.). Patient/family counseled. Old medical records reviewed. Disposition: Discharged. Condition: stable. CLINICAL IMPRESSION Generalized allergic reaction with skin rash and hives. INSTRUCTIONS (Please initiate the use of the Prednisone as prescribed earlier this morning as discussed). Warnings: Further evaluation is necessary. GENERAL WARNINGS: Return or contact your physician immediately if your condition worsens or changes unexpectedly, if not improving as expected, or if other problems arise. Your Current Medications: CONTINUE TAKING THE FOLLOWING MEDICATIONS: Benadryl Oral. PredniSONE Oral. Prescription Medications: EpiPen: inject lateral thigh for allergic reaction as directed. Dispense two (2) units. No refill. Substitution is permissible. Follow-up: Follow up with an continuous miner operator- as recommended by your primary care physician. Understanding of the discharge instructions verbalized by patient. Follow-up with: [facility], , , [address], , [place], [address] Follow up tomorrow. Call for the next available appointment. (Electronically signed by Louie Burton MD 09/10/2016 18:10)
--- NOTE | 2016-09-10 17:10 | ED CLINICAL REPORT ---
Clinical Report - Physicians/Mid Levels 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 Arrived- By private vehicle. Historian- patient. HISTORY OF PRESENT ILLNESS Chief Complaint: ALLERGIC REACTION and "HIVES". The patient has had a skin rash, itching and swelling but not had trouble swallowing. No difficulty breathing. This started last night. It was abrupt in onset and has been constant and waxing/waning. A possible cause has been identified (shrimp). He was recently exposed to shellfish (as possible allergen) (he says that he went home and went to sleep as he was feeling a bit better. When he woke up he said that his hives were much worse.. He did not yet fill his prescription for the prednisone. He denies any swelling in his throat or trouble breathing he does feel that his lips are affected at this time). Similar symptoms previously: Recent medical care: The patient was seen recently at this facility. Seen for similar symptoms. Evaluation/treatment: antihistamines and steroids. Diagnosis: allergic reaction and urticaria. ( he did not fill and start his prescription for prednisone as instructed.). REVIEW OF SYSTEMS No chills, fever, sweats, calf pain or chest pain. No cough, difficulty breathing, pedal edema, palpitations or abdominal pain. No constipation, diarrhea, nausea, vomiting or urinary problems. All systems otherwise negative, except as recorded above. SOCIAL HISTORY Current every day light tobacco smoker (cigarette)- less than 1/2 a pack per day. Occasional alcohol use. History of occasional drug use: marijuana. FAMILY HISTORY Denies family medical history. ADDITIONAL NOTES The nursing notes have been reviewed. PHYSICAL EXAM Vital Signs: 09/10/2016 15:28 BP: 101/72. HR: 98. RR: 18. O2 saturation: 100%. Temp: 97.5 F. Pain level now: 10/10. Have been reviewed. Appearance: Alert. No acute distress. ENT: Ears normal. Nose normal. Pharynx normal. Neck: Neck supple. CVS: Normal heart rate and rhythm. Heart sounds normal. Respiratory: No respiratory distress. Breath sounds normal. Abdomen: Nontender. No organomegaly. Extremities: Normal external inspection. No calf tenderness. Skin: The rash is urticarial. The rash is generalized. PROGRESS AND PROCEDURES Course of Care: Patient is stable. Symptoms better. Vital signs have been reviewed. Physical exam findings are improved. Alert. No acute distress. Breath sounds normal. No respiratory distress. Normal heart rate and rhythm. Heart sounds normal. Abdomen soft and nontender. ( his diffuse hives were markedly decreased and less intense after treatment with epinephrine.). Patient/family counseled. Old medical records reviewed. Disposition: Discharged. Condition: stable. CLINICAL IMPRESSION Generalized allergic reaction with skin rash and hives. INSTRUCTIONS (Please initiate the use of the Prednisone as prescribed earlier this morning as discussed). Warnings: Further evaluation is necessary. GENERAL WARNINGS: Return or contact your physician immediately if your condition worsens or changes unexpectedly, if not improving as expected, or if other problems arise. Your Current Medications: CONTINUE TAKING THE FOLLOWING MEDICATIONS: Benadryl Oral. PredniSONE Oral. Prescription Medications: EpiPen: inject lateral thigh for allergic reaction as directed. Dispense two (2) units. No refill. Substitution is permissible. Follow-up: Follow up with an computer support specialist- as recommended by your primary care physician. Understanding of the discharge instructions verbalized by patient. Follow-up with: [facility], , , [address], , [place], [id number] Follow up tomorrow. Call for the next available appointment. (Electronically signed by Louie Burton MD 09/10/2016 18:10)
--- NOTE | 2016-09-10 17:10 | ED ORDER SUMMARY ---
..... 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 per protocol) (15:35 JBoardley R.N.) MEDICATION ORDERS: Epinephrine Subcut 0.3 mg (HIGH ALERT MEDICATION, NOW) (15:46 09/10/2016 Manuela MATTHEWS) (Ack 15:47 JBoardley R.N.) (15:55 JBoardley R.N.) IV FLUIDS: IV Saline Lock (15:35 09/10/2016 JBoardley R.N. per protocol) (15:36 JBoardley R.N.) ORDER SHEET NOTES: [Electronically signed by Ede Osorio R.N. (17:23 09/10/2016)] [Electronically signed by Louie Burton MD (18:10 09/10/2016)] [Electronically locked/signed by Ede Osorio R.N. (17:23 09/10/2016)]
--- NOTE | 2016-09-10 17:10 | ED NURSING NOTES ---
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 Acuity: LEVEL 4. Chief Complaint: SKIN RASH. 15:28 09/10/16. 15:09/10/16. Alert. ( Pt was seen here recently seen here with hives from eating shrimp. Pt came back to ER as hives are getting worse.). SEPSIS SCREEN: Sepsis Screen. Negative (no infection suspected/documented). --15:32 Ede Osorio R.N. 15:09/10/16. BP: 101/72. HR: 98. RR: 18. O2 saturation: 100%. Temp: 97.5 F (oral). Pain level now: 02/19. --15:32 Ede Osorio R.N. Weight: 81.6 kg measured. Height/Length: 72 inches Measured. BMI: 24.4. --15:31 Ede Osorio R.N. Medications PredniSONE Oral. --15:33 Ede Osorio R.N. Benadryl Oral. --15:34 Ede Osorio R.N. Medication/allergy information source: the patient. --15:32 Ede Osorio R.N. Allergies Shrimp. Possible --15:33 Ede Osorio R.N. History Arrived by private vehicle. Historian: patient. Unaccompanied. 15:09/10/16. Reported as generalized in location. This started today. 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 Took Benadryl. PAST MEDICAL HX: Immunizations not up to date. SOCIAL HX: Current every day light tobacco smoker (cigarette)- less than 1/2 a pack per day. Alcohol use. History of occasional drug use: marijuana. FALL RISK ASSESSMENT: Fall risk assessment completed. No fall risk identified. NUTRITIONAL RISK ASSESSMENT: The nutritional risk assessment revealed no deficiencies. FUNCTIONAL ASSESSMENT: Functional assessment: no impairments noted. LEARNING NEEDS ASSESSMENT: The learning needs assessment revealed no barriers. SKIN INTEGRITY ASSESSMENT: Skin integrity risk assessment completed. No skin integrity risk identified. --15:32 Ede Osorio R.N. Treatment REGISTERED NURSE TEACHER: (Steriod (from recent RX), Benadryl). --15:34 Ede Osorio R.N. PROBLEMS: Hives. Tinnitus. Cervical Strain. --15:33 Ede Osorio R.N. ADDITIONAL SURGERIES: Lymph node biopsy. Skin grafting. --15:33 Ede Osorio R.N. Assessment 15:28 09/10/16. --15:32 Ede Osorio R.N. Interventions 15:09/10/16. 15:09/10/16. ID and allergy band on patient. To treatment room. --15:32 Ede Osorio R.N. PHYSICAL ASSESSMENT 15:09/10/16. Ambulatory to room. GENERAL / NEURO / PSYCH: Appears anxious. RESPIRATORY: Respirations not labored. CVS: Capillary refill less than 2 seconds. Pulses within normal limits. SKIN: Generalized urticaria- associated with itching. --15:32 Ede Osorio R.N. NURSING PROGRESS NOTES 15:31 09/10/2016 Site #1 started via IV in the left antecubital space with an 20g angiocath; one attempt. Blood drawn: rainbow set. Labeled in the presence of the patient and sent to the lab. Saline lock flushed with 10 mL saline. --15:36 Ede Osorio R.N. 15:09/10/16. The plan of care for this patient has been created. Pulse oximeter and NIBP monitor placed on patient; monitor alarms on. Patient gowned. Head of bed elevated. Call light placed in reach. Side rails up x 2. Bed placed in lowest position. Brakes of bed on. --15:32 Ede Osorio R.N. 15:32 09/10/16. Patient ready for evaluation- chart flagged. --15:32 Ede Osorio R.N. 15:55 09/10/2016 Epinephrine (EPINEPHrine HCl) Subcutaneous 0.3 mg given. Given in the right deltoid. Allergies verified and confirmed 5 rights. --15:55 Ede Osorio R.N. 15:58 09/10/16. Patient informed about reason for wait and about plan of care. --15:58 Ede Osorio R.N. 16:22 09/10/16. --16:22 Ede Osorio R.N. 16:22 09/10/16. BP: 111/69. HR: 82. RR: 12. O2 saturation: 99% on room air. Temp: 97.8 F (oral). --16:22 Ede Osorio R.N. 16:22 09/10/16. Reassessment after medication administered. He reports no complaints and he is calm and resting quietly. --16:22 Ede Osorio R.N. 16:42 09/10/16. Reassessment after medication administered. He has had no adverse reaction. Overall patient status is improved- he states feels better. ( Skin appears to be clearing from rash, pt feels better). RESPIRATORY: No respiratory distress. Breath sounds normal. --16:42 Ede Osorio R.N. 17:06 09/10/16. Patient waiting for disposition. --17:06 Ede Osorio R.N. DISPOSITION / DISCHARGE 17:17 09/10/2016 Site #1 removed upon discharge. Catheter intact. --17:17 Ede Osorio R.N. 17:18 09/10/16. Condition at departure: improved. The goals identified in the patient's plan of care were met. No learning barriers present. Discharge instructions provided and reviewed with the patient. Reviewed warnings. Reviewed medication(s). Treatments reviewed. Patient verbalized understanding. Written instructions provided in [place]. The patient was discharged by the physician. He was discharged home and accompanied by family. He left the Emergency Department ambulatory and via private vehicle. Family member driving. FALL RISK ASSESSMENT: Fall risk assessment completed. No fall risk identified. --17:18 Ede Osorio R.N. 17:17 09/10/16. BP: 108/68. HR: 72. RR: 14. O2 saturation: 99% on room air. Temp: 98.2 F (oral). Pain level now: 05/22. --17:18 Ede Osorio R.N. 17:18 09/10/16. Departure time: 17:18. --17:18 Ede Osorio R.N. Locked/Released at 09/10/2016 17:23 by Ede Osorio R.N.
--- NOTE | 2016-09-10 17:10 | ED NURSING NOTES ---
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 Acuity: LEVEL 4. Chief Complaint: SKIN RASH. 15:28 09/10/16. 15:09/10/16. Alert. ( Pt was seen here recently seen here with hives from eating shrimp. Pt came back to ER as hives are getting worse.). SEPSIS SCREEN: Sepsis Screen. Negative (no infection suspected/documented). --15:32 Ede Osorio R.N. 15:09/10/16. BP: 101/72. HR: 98. RR: 18. O2 saturation: 100%. Temp: 97.5 F (oral). Pain level now: 02/19. --15:32 Ede Osorio R.N. Weight: 81.6 kg measured. Height/Length: 72 inches Measured. BMI: 24.4. --15:31 Ede Osorio R.N. Medications PredniSONE Oral. --15:33 Ede Osorio R.N. Benadryl Oral. --15:34 Ede Osorio R.N. Medication/allergy information source: the patient. --15:32 Ede Osorio R.N. Allergies Shrimp. Possible --15:33 Ede Osorio R.N. History Arrived by private vehicle. Historian: patient. Unaccompanied. 15:09/10/16. Reported as generalized in location. This started today. 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 Took Benadryl. PAST MEDICAL HX: Immunizations not up to date. SOCIAL HX: Current every day light tobacco smoker (cigarette)- less than 1/2 a pack per day. Alcohol use. History of occasional drug use: marijuana. FALL RISK ASSESSMENT: Fall risk assessment completed. No fall risk identified. NUTRITIONAL RISK ASSESSMENT: The nutritional risk assessment revealed no deficiencies. FUNCTIONAL ASSESSMENT: Functional assessment: no impairments noted. LEARNING NEEDS ASSESSMENT: The learning needs assessment revealed no barriers. SKIN INTEGRITY ASSESSMENT: Skin integrity risk assessment completed. No skin integrity risk identified. --15:32 Ede Osorio R.N. Treatment GOLF TOURNAMENT CONSULTANT: (Steriod (from recent RX), Benadryl). --15:34 Ede Osorio R.N. PROBLEMS: Hives. Tinnitus. Cervical Strain. --15:33 Ede Osorio R.N. ADDITIONAL SURGERIES: Lymph node biopsy. Skin grafting. --15:33 Ede Osorio R.N. Assessment 15:28 09/10/16. --15:32 Ede Osorio R.N. Interventions 15:09/10/16. 15:09/10/16. ID and allergy band on patient. To treatment room. --15:32 Ede Osorio R.N. PHYSICAL ASSESSMENT 15:09/10/16. Ambulatory to room. GENERAL / NEURO / PSYCH: Appears anxious. RESPIRATORY: Respirations not labored. CVS: Capillary refill less than 2 seconds. Pulses within normal limits. SKIN: Generalized urticaria- associated with itching. --15:32 Ede Osorio R.N. NURSING PROGRESS NOTES 15:31 09/10/2016 Site #1 started via IV in the left antecubital space with an 20g angiocath; one attempt. Blood drawn: rainbow set. Labeled in the presence of the patient and sent to the lab. Saline lock flushed with 10 mL saline. --15:36 Ede Osorio R.N. 15:09/10/16. The plan of care for this patient has been created. Pulse oximeter and NIBP monitor placed on patient; monitor alarms on. Patient gowned. Head of bed elevated. Call light placed in reach. Side rails up x 2. Bed placed in lowest position. Brakes of bed on. --15:32 Ede Osorio R.N. 15:32 09/10/16. Patient ready for evaluation- chart flagged. --15:32 Ede Osorio R.N. 15:55 09/10/2016 Epinephrine (EPINEPHrine HCl) Subcutaneous 0.3 mg given. Given in the right deltoid. Allergies verified and confirmed 5 rights. --15:55 Ede Osorio R.N. 15:58 09/10/16. Patient informed about reason for wait and about plan of care. --15:58 Ede Osorio R.N. 16:22 09/10/16. --16:22 Ede Osorio R.N. 16:22 09/10/16. BP: 111/69. HR: 82. RR: 12. O2 saturation: 99% on room air. Temp: 97.8 F (oral). --16:22 Ede Osorio R.N. 16:22 09/10/16. Reassessment after medication administered. He reports no complaints and he is calm and resting quietly. --16:22 Ede Osorio R.N. 16:42 09/10/16. Reassessment after medication administered. He has had no adverse reaction. Overall patient status is improved- he states feels better. ( Skin appears to be clearing from rash, pt feels better). RESPIRATORY: No respiratory distress. Breath sounds normal. --16:42 Ede Osorio R.N. 17:06 09/10/16. Patient waiting for disposition. --17:06 Ede Osorio R.N. DISPOSITION / DISCHARGE 17:17 09/10/2016 Site #1 removed upon discharge. Catheter intact. --17:17 Ede Osorio R.N. 17:18 09/10/16. Condition at departure: improved. The goals identified in the patient's plan of care were met. No learning barriers present. Discharge instructions provided and reviewed with the patient. Reviewed warnings. Reviewed medication(s). Treatments reviewed. Patient verbalized understanding. Written instructions provided in South [place]ese. The patient was discharged by the physician. He was discharged home and accompanied by family. He left the Emergency Department ambulatory and via private vehicle. Family member driving. FALL RISK ASSESSMENT: Fall risk assessment completed. No fall risk identified. --17:18 Ede Osorio R.N. 17:17 09/10/16. BP: 108/68. HR: 72. RR: 14. O2 saturation: 99% on room air. Temp: 98.2 F (oral). Pain level now: 05/22. --17:18 Ede Osorio R.N. 17:18 09/10/16. Departure time: 17:18. --17:18 Ede Osorio R.N. Locked/Released at 09/10/2016 17:23 by Ede Osorio R.N.
--- NOTE | 2016-09-10 17:10 | ED ORDER SUMMARY ---
..... 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 per protocol) (15:35 JBoardley R.N.) MEDICATION ORDERS: Epinephrine Subcut 0.3 mg (HIGH ALERT MEDICATION, NOW) (15:46 09/10/2016 Manuela MATTHEWS) (Ack 15:47 JBoardley R.N.) (15:55 JBoardley R.N.) IV FLUIDS: IV Saline Lock (15:35 09/10/2016 JBoardley R.N. per protocol) (15:36 JBoardley R.N.) ORDER SHEET NOTES: [Electronically signed by Ede Osorio R.N. (17:23 09/10/2016)] [Electronically signed by Louie Burton MD (18:10 09/10/2016)] [Electronically locked/signed by Ede Osorio R.N. (17:23 09/10/2016)]
--- NOTE | 2016-09-10 18:10 | ED DISCHARGE INSTRUCTIONS ---
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 VisitID: [id number] [address] [place] [address] 31y, M Registration Date/Time: 09/10/2016 Generalized allergic reaction with skin rash and hives. INSTRUCTIONS (Please initiate the use of the Prednisone as prescribed earlier this morning as discussed). Warnings: Further evaluation is necessary. GENERAL WARNINGS: Return or contact your physician immediately if your condition worsens or changes unexpectedly, if not improving as expected, or if other problems arise. Your Current Medications: CONTINUE TAKING THE FOLLOWING MEDICATIONS: Benadryl Oral. PredniSONE Oral. Prescription Medications: EpiPen: inject lateral thigh for allergic reaction as directed. Dispense two (2) units. No refill. Substitution is permissible. Follow-up: Follow up with an molder floor- as recommended by your primary care physician. Understanding of the discharge instructions verbalized by patient. Follow-up with: [facility], , , [address], [place], [id number] Follow up tomorrow. Call for the next available appointment. ADDITIONAL INFORMATION Allergic Reaction,Generalized [Other] You are having an allergic reaction. This may cause an itchy rash, dizziness, fainting, trouble breathing or swallowing, and swelling of the face or other parts of the body. This can be caused by exposure to something in your surroundings that you have become sensitive to. This could be due to medicine or food. This could also be due to something you put on your skin or in your hair or something in the air. Often it is not possible to find out exactly what has caused your reaction. The goal of today's treatment is to relieve symptoms. The rash will usually fade over several days, but can sometimes last up to two weeks. Home Care: 1) If you know what you are allergic to, avoid it because future reactions could be worse than this one. 2) Avoid tight clothing and anything that heats up your skin (hot showers/baths, direct sunlight) since heat will make itching worse. 3) An ice pack will relieve local areas of intense itching and redness. Lanacaine cream or Solarcaine spray (or other product containing "benzocaine", available without a prescription) will reduce the itching. 4) Oral Benadryl (diphenhydramine) is an antihistamine available at drug and grocery stores. Unless a prescription antihistamine was given, Benadryl may be used to reduce itching if large areas of the skin are involved. Use lower doses during the daytime and higher doses at bedtime since the drug may make you sleepy. [NOTE: Do not use Benadryl if you have glaucoma or if you are a man with trouble urinating due to an enlarged prostate.] Claritin (loratidine) is an antihistamine that causes less drowsiness and is a good alternative for daytime use. Follow Up Follow Up with your doctor or this facility in two days if your symptoms do not continue to improve. If you had a severe reaction today, or if you have had several mild-moderate allergic reactions in the past, ask your doctor about allergy testing to find out what you are allergic to. If your reaction included dizziness, fainting or trouble breathing or swallowing, ask your doctor about carrying an Allergy Kit (injectable epinephrine) for home use. Get Prompt Medical Attention if any of the following occur: -- Trouble breathing or swallowing -- New or worse swelling in the face, eyelids, lips, mouth, tongue or throat -- Dizziness, weakness or fainting Hives Hives is an itchy red rash that can appear suddenly and move about your body. It goes away in one place and comes back in another. This is usually caused by something that you are allergic to such as: EATING: fruit, shellfish, chocolate, nuts, tomatoes or medicine BREATHING: pollens, animal hair/fur or mold spores Exposure to cold air, sun rays or exercise can sometimes cause an attack. Many times we cannot find a cause. Medicines can be used to reduce itching and swelling. The rash will usually fade over several days, but can sometimes last up to two weeks. Home Care: 1) Do not wear tight clothing and do not take hot baths/showers since heat can make the itching worse. 2) An ice pack (ice cubes in a plastic bag, wrapped in a towel) will reduce local areas of redness and itching. Lanacaine cream or Solarcaine spray (or other product containing "benzocaine") will reduce itching. 3) Oral Benadryl (diphenhydramine) is an antihistamine available at drug and grocery stores. Unless a prescription antihistamine was given, Benadryl may be used to reduce itching if large areas of the skin are involved. Use lower doses during the daytime and higher doses at bedtime since the drug may make you sleepy. [NOTE: Do not use Benadryl if you have glaucoma or if you are a man with trouble urinating due to an enlarged prostate.] Claritin (loratadine) is an antihistamine that causes less drowsiness and is a good alternative for daytime use. 4) If you know what you are sensitive to, avoid this substance. Future reactions could be worse than this one. Follow Up with your doctor as directed by our staff, if symptoms do not begin to improve in two days. If you have had a severe reaction, or have had several episodes of hives, then ask your doctor about allergy testing to find out what you are allergic to. Get Prompt Medical Attention if any of the following occur: -- Trouble breathing or swallowing -- New or increased swelling in the face, lips, tongue or throat -- Dizziness, weakness or fainting You have been given the following additional information: Allergic Reaction, Other (General) Hives (Electronically signed by Louie Burton MD 09/10/2016 18:10)
--- NOTE | 2016-09-10 18:10 | ED MAR SUMMARY ---
..... Medication Administration Record [facility] [address] 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 Medication Administered: EPINEPHRINE [SUBCUTANREOUS] (EPINEPHRINE HCL), Dose: 0.3 mg Subcutaneous. Medication Ordered: Epinephrine Subcut 0.3 mg (HIGH ALERT MEDICATION, NOW).
--- NOTE | 2016-09-10 18:10 | ED DISCHARGE INSTRUCTIONS ---
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 [place] [address] 31y, M Registration Date/Time: 09/10/2016 Generalized allergic reaction with skin rash and hives. INSTRUCTIONS (Please initiate the use of the Prednisone as prescribed earlier this morning as discussed). Warnings: Further evaluation is necessary. GENERAL WARNINGS: Return or contact your physician immediately if your condition worsens or changes unexpectedly, if not improving as expected, or if other problems arise. Your Current Medications: CONTINUE TAKING THE FOLLOWING MEDICATIONS: Benadryl Oral. PredniSONE Oral. Prescription Medications: EpiPen: inject lateral thigh for allergic reaction as directed. Dispense two (2) units. No refill. Substitution is permissible. Follow-up: Follow up with an impress associate- as recommended by your primary care physician. Understanding of the discharge instructions verbalized by patient. Follow-up with: [facility], , , [address], [place], [address] Follow up tomorrow. Call for the next available appointment. ADDITIONAL INFORMATION Allergic Reaction,Generalized [Other] You are having an allergic reaction. This may cause an itchy rash, dizziness, fainting, trouble breathing or swallowing, and swelling of the face or other parts of the body. This can be caused by exposure to something in your surroundings that you have become sensitive to. This could be due to medicine or food. This could also be due to something you put on your skin or in your hair or something in the air. Often it is not possible to find out exactly what has caused your reaction. The goal of today's treatment is to relieve symptoms. The rash will usually fade over several days, but can sometimes last up to two weeks. Home Care: 1) If you know what you are allergic to, avoid it because future reactions could be worse than this one. 2) Avoid tight clothing and anything that heats up your skin (hot showers/baths, direct sunlight) since heat will make itching worse. 3) An ice pack will relieve local areas of intense itching and redness. Lanacaine cream or Solarcaine spray (or other product containing "benzocaine", available without a prescription) will reduce the itching. 4) Oral Benadryl (diphenhydramine) is an antihistamine available at drug and grocery stores. Unless a prescription antihistamine was given, Benadryl may be used to reduce itching if large areas of the skin are involved. Use lower doses during the daytime and higher doses at bedtime since the drug may make you sleepy. [NOTE: Do not use Benadryl if you have glaucoma or if you are a man with trouble urinating due to an enlarged prostate.] Claritin (loratidine) is an antihistamine that causes less drowsiness and is a good alternative for daytime use. Follow Up Follow Up with your doctor or this facility in two days if your symptoms do not continue to improve. If you had a severe reaction today, or if you have had several mild-moderate allergic reactions in the past, ask your doctor about allergy testing to find out what you are allergic to. If your reaction included dizziness, fainting or trouble breathing or swallowing, ask your doctor about carrying an Allergy Kit (injectable epinephrine) for home use. Get Prompt Medical Attention if any of the following occur: -- Trouble breathing or swallowing -- New or worse swelling in the face, eyelids, lips, mouth, tongue or throat -- Dizziness, weakness or fainting Hives Hives is an itchy red rash that can appear suddenly and move about your body. It goes away in one place and comes back in another. This is usually caused by something that you are allergic to such as: EATING: fruit, shellfish, chocolate, nuts, tomatoes or medicine BREATHING: pollens, animal hair/fur or mold spores Exposure to cold air, sun rays or exercise can sometimes cause an attack. Many times we cannot find a cause. Medicines can be used to reduce itching and swelling. The rash will usually fade over several days, but can sometimes last up to two weeks. Home Care: 1) Do not wear tight clothing and do not take hot baths/showers since heat can make the itching worse. 2) An ice pack (ice cubes in a plastic bag, wrapped in a towel) will reduce local areas of redness and itching. Lanacaine cream or Solarcaine spray (or other product containing "benzocaine") will reduce itching. 3) Oral Benadryl (diphenhydramine) is an antihistamine available at drug and grocery stores. Unless a prescription antihistamine was given, Benadryl may be used to reduce itching if large areas of the skin are involved. Use lower doses during the daytime and higher doses at bedtime since the drug may make you sleepy. [NOTE: Do not use Benadryl if you have glaucoma or if you are a man with trouble urinating due to an enlarged prostate.] Claritin (loratadine) is an antihistamine that causes less drowsiness and is a good alternative for daytime use. 4) If you know what you are sensitive to, avoid this substance. Future reactions could be worse than this one. Follow Up with your doctor as directed by our staff, if symptoms do not begin to improve in two days. If you have had a severe reaction, or have had several episodes of hives, then ask your doctor about allergy testing to find out what you are allergic to. Get Prompt Medical Attention if any of the following occur: -- Trouble breathing or swallowing -- New or increased swelling in the face, lips, tongue or throat -- Dizziness, weakness or fainting You have been given the following additional information: Allergic Reaction, Other (General) Hives (Electronically signed by Louie Burtno MD 09/10/2016 18:10)
--- NOTE | 2016-09-10 18:10 | ED MED RECONCILIATION SUMMARY ---
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 BMI: 24.4 ALLERGIES: Shrimp The patient's Home Medications are listed below: CONTINUE TAKING THE FOLLOWING MEDICATIONS: Benadryl Oral PredniSONE Oral The source(s) of the original Home Medication information: patient The following Medications were given to the patient in the Emergency Department: Epinephrine [Subcutanreous] Subcutaneous 0.3 mg, administered: 09/10/2016 3:55:00 PM The following Medications were prescribed to the patient: EpiPen: inject lateral thigh for allergic reaction as directed. Dispense two (2) units. No refill. Substitution is permissible. -- Louie Burton MD
--- NOTE | 2016-09-10 18:10 | ED MED RECONCILIATION SUMMARY ---
Patient: GERMAINE KASPER Medication Reconciliation Report [facility] VisitID: [id number] [address] [place] [address] 31y, M Registration Date/Time: 09/10/2016 Weight: 81.6 kg Height/Length: 72 in. BMI: 24.4 ALLERGIES: Shrimp The patient's Home Medications are listed below: CONTINUE TAKING THE FOLLOWING MEDICATIONS: Benadryl Oral PredniSONE Oral The source(s) of the original Home Medication information: patient The following Medications were given to the patient in the Emergency Department: Epinephrine [Subcutanreous] Subcutaneous 0.3 mg, administered: 09/10/2016 3:55:00 PM The following Medications were prescribed to the patient: EpiPen: inject lateral thigh for allergic reaction as directed. Dispense two (2) units. No refill. Substitution is permissible. -- Louie Burton MD
--- NOTE | 2016-09-10 18:10 | ED MAR SUMMARY ---
..... Medication Administration Record [facility] [address] [place] [address] Patient: GERMAINE KASPER Visit ID: [id number] 31y, M Weight: 81.6 kg Height/Length: 72 in BMI: 24.4 ALLERGIES: Shrimp Given 15:55 09/10/2016 Ede Osorio R.N. Medication Administered: EPINEPHRINE [SUBCUTANREOUS] (EPINEPHRINE HCL), Dose: 0.3 mg Subcutaneous. Medication Ordered: Epinephrine Subcut 0.3 mg (HIGH ALERT MEDICATION, NOW).
== END 2016-09-10 17:18 | disposition home or self-care (01) ==
LOC: ED SRH 15:25
DX: T78.40XA Allergy, unspecified, initial encounter (principal); L50.9 Urticaria, unspecified; F17.210 Nicotine dependence, cigarettes, uncomplicated; F12.10 Cannabis abuse, uncomplicated